=== PATIENT | male | born 1965 | race African-American/Black ===

== ENCOUNTER 2021-10-18 08:07 | Day surgery (SDC) | payer BC ==
[2021-10-17 13:59] VITALS: BMI 25.0
[2021-10-18] MEDS ORDERED: PROPOFOL 20 ML ONE ×3 (08:56)
[2021-10-18 09:43] VITALS: TEMP 97
[2021-10-18 09:54] VITALS: BP 106/72; PULSE 97
== END 2021-10-18 09:54 | disposition home or self-care (01) ==
LOC: FASU-ENDO 08:07
PROVIDERS: ATTEND Internal Medicine Gastroenterology
PROC: 0DJD8ZZ Inspection of Lower Intestinal Tract, Via Natural or Artificial Opening Endoscopic (ICD-10-PCS; principal; 2021-10-18 09:05)
DX: Z12.11 Encounter for screening for malignant neoplasm of colon (principal)